=== PATIENT | female | born 1995 | race Caucasian/White ===

== ENCOUNTER 2016-04-29 18:15 | Emergency (ER) | payer OTHER ==
[~2016-04-29] VITALS: Ht 165.1 cm; Wt 76.4 kg
[~2016-04-29 18:15] MED LIST: JUNEL FE 1/21 TABLET PO
[2016-04-29 18:45] LABS: HEMATOCRIT 40.2 % (36.0-46.0); MCH 27.9 PG (29.0-34.0); MCHC 34.8 G/DL (30.0-36.0); MCV 80.1 FL (83-99); MEAN PLAT.VOLUME 10.2 uM^3 (9.5-12.4); PLATELET COUNT 350 K/uL (156-360); RBC DIS.WIDTH-CV 12.2 % (11.8-14.6); RBC DIS.WIDTH-SD 34.8 % (39-53); RED BLOOD COUNT 5.02 M/uL (3.80-5.20); WHITE BLOOD COUNT 11.3 K/uL (4.1-10.2)
[2016-04-29 18:51] LABS: BILIRUBIN NEGATIVE; BLOOD NEGATIVE; COLOR YELLOW ((YELLOW)); GLUCOSE (STRIP) NEGATIVE; KETONES NEGATIVE; LEUKOCYTES NEGATIVE; NITRITE NEGATIVE; PROTEIN (STRIP) NEGATIVE; SPECIFIC GRAVITY 1.007 (1.000-1.030); UROBILINOGEN 0.2 MG/DL (0.2-1.0)
[2016-04-29 18:53] LABS: ADD MIUA? NO; UCUL ADDED? NO
[2016-04-29 18:54] LABS: CHLORIDE 106 mEq/L (99-109); POTASSIUM 3.8 mEq/L (3.7-5.4); SODIUM 140 mEq/L (136-147)
[2016-04-29 18:56] LABS: GLUCOSE 79 mg/dL (70-99)
[2016-04-29 18:57] LABS: ANION GAP 11 MEQ/L (2-14)
[2016-04-29 18:58] LABS: TOTAL BILIRUBIN 0.2 mg/dL (0.0-1.0)
[2016-04-29 18:59] LABS: ALKALINE PHOSPHATASE 76 IU/L (3-129)
[2016-04-29 19:00] LABS: GFR ESTIMATE (CALCULATED) > 59 mL/min/
[2016-04-29 19:01] LABS: UREA NITROGEN (BUN) 7 mg/dL (9-23)
[2016-04-29 19:10] LABS: QUANTITATIVE HCG < 4.0 MIU/ML
[2016-04-29] MEDS ORDERED: NAPROXEN500 MG PO (22:37)
[2016-04-29 22:56] VITALS: BP 116/76
== END 2016-04-29 22:57 | disposition home or self-care (01) ==
LOC: EME 18:15
DX: N83.201 Unspecified ovarian cyst, right side (principal); R10.31 Right lower quadrant pain
CPT/HCPCS: 74177; 80053; 81003; 84702; 85027; 99281; 99284; J1885

== ENCOUNTER 2016-08-31 15:51 | Emergency (ER) | payer OTHER ==
[~2016-08-31] VITALS: Ht 165.1 cm; Wt 74.9 kg
[~2016-08-31 15:51] MED LIST changes: +NAPROXEN500 MG PO
[2016-08-31 16:35] LABS: HEMATOCRIT 43.7 % (36.0-46.0); MCH 27.8 PG (29.0-34.0); MCHC 33.6 G/DL (30.0-36.0); MCV 82.6 FL (83-99); MEAN PLAT.VOLUME 10.3 uM^3 (9.5-12.4); PLATELET COUNT 337 K/uL (156-360); RBC DIS.WIDTH-CV 12.3 % (11.8-14.6); RED BLOOD COUNT 5.29 M/uL (3.80-5.20); WHITE BLOOD COUNT 8.2 K/uL (4.1-10.2)
[2016-08-31 16:44] LABS: CHLORIDE 109 mEq/L (99-109); POTASSIUM 4.1 mEq/L (3.7-5.4); SODIUM 141 mEq/L (136-147)
[2016-08-31 16:47] LABS: GLUCOSE 90 mg/dL (70-99)
[2016-08-31 16:48] LABS: ANION GAP 9 MEQ/L (2-14)
[2016-08-31 16:50] LABS: ALKALINE PHOSPHATASE 71 IU/L (3-129); GFR ESTIMATE (CALCULATED) > 59 mL/min/
[2016-08-31 16:50] LABS: ADD MIUA? YES; BILIRUBIN NEGATIVE; BLOOD MODERATE; COLOR STRAW ((YELLOW)); GLUCOSE (STRIP) NEGATIVE; KETONES NEGATIVE; LEUKOCYTES NEGATIVE; NITRITE NEGATIVE; PROTEIN (STRIP) NEGATIVE; SPECIFIC GRAVITY 1.012 (1.000-1.030); UROBILINOGEN 0.2 MG/DL (0.2-1.0)
[2016-08-31 16:52] LABS: UREA NITROGEN (BUN) 9 mg/dL (9-23)
[2016-08-31 17:00] LABS: QUANTITATIVE HCG < 4.0 MIU/ML
[2016-08-31 17:03] LABS: BACTERIA NONE SEEN /HPF; EPITHELIAL CELLS RARE /HPF; MUCUS NONE SEEN /LPF; UCUL ADDED? NO; WHITE BLOOD CELLS 0-5 /HPF (0-5)
[2016-08-31 17:05] LABS: TOTAL BILIRUBIN 0.2 mg/dL (0.0-1.0)
[2016-08-31] MEDS ORDERED: NORCO 5/3251 TABLET PO (19:15)
[2016-08-31 19:29] VITALS: BP 122/67
== END 2016-08-31 19:30 | disposition home or self-care (01) ==
LOC: EME 15:51
DX: R10.9 Unspecified abdominal pain (principal)
CPT/HCPCS: 74176; 80053; 81003; 84702; 85027; 99281; 99284; J2270